=== PATIENT | female | born 1995 | race Caucasian/White ===

== ENCOUNTER 2020-12-23 04:55 | Emergency (ER) | payer OTHER ==
[~2020-12-23] VITALS: Ht 175.3 cm; Wt 61.5 kg
[2020-12-23 05:46] LABS: BASO % 0.2 % (0.0-1.0); EOS # 0.1 10^3/uL (0.0-0.5); EOS % 0.8 % (0.0-3.0); HEMATOCRIT 41.9 % (36.0-47.0); HEMOGLOBIN 14.4 g/dl (12.0-15.5); LYMPH # 0.3 10^3/uL (1.5-5.0); LYMPH % 2.9 % (24.0-44.0); MEAN CORPUSCULAR HEMOGLOBIN 32.1 pg (27.0-33.0); MEAN CORPUSCULAR HGB CONC 34.4 g/dl (32.0-36.5); MEAN CORPUSCULAR VOLUME 93.3 fl (80.0-96.0); MONO # 0.5 10^3/uL (0.0-0.8); MONO % 4.6 % (2.0-8.0); NEUTROPHILS # 10.6 10^3/uL (1.5-8.5); NEUTROPHILS % 91.2 % (36.0-66.0); PLATELET COUNT, AUTOMATED 287 10^3/uL (150-450); RED BLOOD COUNT 4.49 10^6/uL (4.00-5.40); WHITE BLOOD COUNT 11.7 10^3/uL (4.0-10.0)
[2020-12-23] MEDS ORDERED: ONDANSETRON 4MG/2ML VIAL IV ONE (06:15)
[2020-12-23] MEDS ORDERED: NS 1,000 ML IV ONE ×2 (06:15→08:20)
[2020-12-23] MEDS ORDERED: MORPHINE 4 MG/ML 1ML VIAL/SYRINGE (J2270) IV ONE (06:15)
[2020-12-23 06:17] LABS: ALBUMIN 4.5 GM/DL (3.2-5.2); ALT/SGPT 21 U/L (12-78); BILIRUBIN,DIRECT 0.2 MG/DL (0.0-0.2); BILIRUBIN,TOTAL 0.9 MG/DL (0.2-1.0); LIPASE 39 U/L (73-393); TOTAL PROTEIN 8.1 GM/DL (6.4-8.2)
[2020-12-23 06:29] LABS: HCG, SERUM QUALITATIVE NEGATIVE (NEGATIVE)
[2020-12-23] MEDS ORDERED: ISOVUE-370 76% 100ML VIAL As Ordered ONE (06:50)
--- NOTE | 2020-12-23 07:44 | REPVR ---
PROCEDURE INFORMATION: Exam: CT Abdomen And Pelvis With Contrast Exam date and time: 12/23/2020 6:44 AM Age: 25 years old Clinical indication: Abdominal pain; Localized; Right; Additional info: Right abd pain, suspect appy TECHNIQUE: Imaging protocol: Computed tomography of the abdomen and pelvis with contrast. Radiation optimization: All CT scans at this facility use at least one of these dose optimization techniques: automated exposure control; mA and/or kV adjustment per patient size (includes targeted exams where dose is matched to clinical indication); or iterative reconstruction. Contrast material: ISO; Contrast volume: 100 ml; Contrast route: INTRAVENOUS (IV); COMPARISON: No relevant prior studies available. FINDINGS: Liver: Normal. No mass. Gallbladder and bile ducts: Normal. No calcified stones. No ductal dilation. Pancreas: Normal. No ductal dilation. Spleen: Normal. No splenomegaly. Adrenal glands: Normal. No mass. Kidneys and ureters: Normal. No hydronephrosis. Stomach and bowel: There is suggestion of small bowel wall thickening versus under distension. Appendix: No evidence of appendicitis. Intraperitoneal space: Unremarkable. No free air. No significant fluid collection. Vasculature: Unremarkable. No abdominal aortic aneurysm. Lymph nodes: There are shotty small bowel mesenteric lymph nodes. Urinary bladder: Unremarkable as visualized. Reproductive: IUD seen in place. Bones/joints: The proximal end a right femoral fixating rods and screws seen. Soft tissues: Unremarkable. IMPRESSION: 1. Under distended small bowel loops limiting their evaluation for wall thickening coupled with shotty mesenteric lymph nodes. Underlying enteritis cannot be excluded. 2. IUD in place. Electronically signed by: Zia Schaeffer On 12/23/2020 07:44:32 AM
[2020-12-23] MEDS ORDERED: ONDA4TAB6 PO (09:10)
[2020-12-23 09:53] VITALS: BP 104/55
== END 2020-12-23 09:56 | disposition home or self-care (01) ==
LOC: M ED 04:55
DX: K52.9 Noninfective gastroenteritis and colitis, unspecified (principal); R11.2 Nausea with vomiting, unspecified; R19.7 Diarrhea, unspecified; F17.200 Nicotine dependence, unspecified, uncomplicated; Z97.5 Presence of (intrauterine) contraceptive device
CPT/HCPCS: 74177; 80047; 80076; 81001; 83690; 84703; 85025; 96361; 96374; 96375; 99284; J2270; J2405; Q9967

== ENCOUNTER 2021-01-28 15:11 | Inpatient (IN) | payer OTHER ==
[~2021-01-28] VITALS: Ht 165.1 cm; Wt 61.6 kg
[~2021-01-28 15:11] MED LIST: ONDA4TAB6 PO
[2021-01-28 18:07] LABS: HEMATOCRIT 39.1 % (36.0-47.0); HEMOGLOBIN 12.9 g/dl (12.0-15.5); MEAN CORPUSCULAR HEMOGLOBIN 31.7 pg (27.0-33.0); MEAN CORPUSCULAR VOLUME 96.1 fl (80.0-96.0); PLATELET COUNT, AUTOMATED 348 10^3/uL (150-450); RED BLOOD COUNT 4.07 10^6/uL (4.00-5.40); WHITE BLOOD COUNT 13.5 10^3/uL (4.0-10.0)
[2021-01-28 18:31] LABS: AMPHETAMINES LEVEL URINE NEGATIVE (NEGATIVE); BARBITURATES URINE NEGATIVE (NEGATIVE); BENZODIAZEPINES URINE NEGATIVE (NEGATIVE); CANNABINOIDS URINE NEGATIVE (NEGATIVE); COCAINE METABOLITE URINE NEGATIVE (NEGATIVE); METHADONE URINE NEGATIVE (NEGATIVE); OPIATES URINE NEGATIVE (NEGATIVE); PHENCYCLIDINE URINE NEGATIVE (NEGATIVE)
[2021-01-28 18:37] LABS: HCG, SERUM QUALITATIVE NEGATIVE (NEGATIVE)
[2021-01-28 18:45] LABS: RSV AMPLIFICATION NEGATIVE (NEGATIVE)
[2021-01-28 18:53] LABS: ACETAMINOPHEN LEVEL < 2.0 UG/ML (10.0-30.0); ALBUMIN 4.1 GM/DL (3.2-5.2); ALT/SGPT 24 U/L (12-78); BILIRUBIN,DIRECT 0.1 MG/DL (0.0-0.2); BILIRUBIN,TOTAL 0.3 MG/DL (0.2-1.0); BLOOD UREA NITROGEN 12 MG/DL (7-18); CALCIUM LEVEL 9.5 MG/DL (8.5-10.1); CARBON DIOXIDE LEVEL 28 MEQ/L (21-32); CHLORIDE LEVEL 107 MEQ/L (98-107); CREATININE FOR GFR 0.75 MG/DL (0.55-1.30); ETHYL ALCOHOL (ETHANOL) < 0.003 % (0.000-0.010); GLOMERULAR FILTRATION RATE > 60.0 (>60); GLUCOSE, FASTING 93 MG/DL (70-100); POTASSIUM SERUM 4.1 MEQ/L (3.5-5.1); SALICYLATE LEVEL 1.9 MG/DL (5.0-30.0); SODIUM LEVEL 140 MEQ/L (136-145); THYROID STIMULATING HORMONE 0.408 uIU/ML (0.358-3.740); TOTAL PROTEIN 7.8 GM/DL (6.4-8.2)
[2021-01-28] MEDS ORDERED: ACET-897 PO (19:14)
[2021-01-28] MEDS ORDERED: ACETAMINOPHEN TAB 650MG DOSE (2X325MG) PO PRN (19:45)
[2021-01-28] MEDS ORDERED: MOM 30ML SUSPENSION UDC PO PRN (19:45)
[2021-01-28] MEDS ORDERED: traZODone 50 MG TAB PO PRN (19:45)
[2021-01-28] MEDS ORDERED: MAALOX 30 ML SUSP *UDC PO PRN (19:45)
[2021-01-28 22:27] VITALS: BP 123/82
--- NOTE | 2021-01-29 06:57 | REP ---
INDICATION: trauma. COMPARISON: None. TECHNIQUE: Four views of the left wrist are provided. FINDINGS: Four views of the left wrist demonstrate normal bones, joints, and soft tissues. Overall mineralization pattern is normal. No fracture or subluxation is seen. IMPRESSION: Negative left wrist radiographs. No fracture seen. <Electronically signed by Cristian Schuler > 01/29/21 0635
--- NOTE | 2021-01-29 11:48 | MHHPEPDOC ---
General Date Of Admission: January 28, 2021 Legal Status: 9.39 Chief Complaint ". I was driving with suspended license and that validation software facilitator stopped me for some reason and I was afraid to go to senior living History of Present Illness HISTORY OF THE PRESENT ILLNESS: Patient is a 25 -year-old , female, who [has no previous psychiatric history but apparently had alcohol or use disorder and had 2 or 3 previous DWI arrest. Her last DWI arrest was in March 2018. and she was sentenced and [facility] She stated that she has been in for sobriety at since 03/06/2018 and has been fully employed and enjoying her life since. She was out driving yesterday with a suspended license and apparently was stopped by police for possible seatbelt by [employer] and she panicked because she knows she had a suspended license and in her panic. She grabbed the pocket knife from her purse and made a superficial cut on her neck. It was not serious and didn't require any stitches and she was medically cleared and admitted on 939 status. The routine labs were ordered within normal limits, and her tox screen was negative for any drugs or alcohol. She is strongly denying any suicidal intent. Denies any ongoing depression. Denies any new stressors and stated that it was her impulsive act in the moment of panic. She is pleasant, cooperative, well organized and in no acute distress and denies any serious depression or suicidal intent. Psychiatric Review of Systems Depression (2 or more weeks): denies Jackie (4 or more days of): denies Psychosis: denies PTSD: denies Anxiety: situational anxiety, stressor related anxiety Past Psychiatric History Previous Psychiatric Diagnosis: [Alcohol use disorder]. Previous Psychiatric Admissions: [None]. Suicide Attempts: [facility] prior history of suicidal attempt or plan. Psychiatric Follow-up: [, Not in any active treatment]. Psychiatric medications: [None]. Past Medical History Medical Problems Denies any major medical issues Head Injury: No Seizures: No Hospitalizations: No Surgeries: No Family Medical/Psychiatric HX Medical Problems Noncontributory Psychiatric Disorders: No Addiction: No Addiction History denies Social History Childhood: [Was born in [place], finished high school]. Abuse/Trauma: No history of abuse or trauma . Current Living Situation: [Lives with 2 roommates]. Education: [High school]. 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 Social Support: [Mother and the her friends f]. Legal: [3 DWIs, last one in March 2018. Served one and half years]. Marital: [, Never , single]. Mental Status Examination General Appearance: well groomed, appears stated age Build: average Demeanor: average Eye Contact: average Activity: average Behavior: cooperative Speech: clear, spontaneous, normal volume Mood: anxious Mood Denies any ongoing depression and no history of jackie and no history of psychosis. No family history of major psychiatric disorder Thought Process: logical/linear Thought Content (Delusions): none reported Thought Content (Other): none reported Thought Content (Aggressive): none reported Perception (Hallucinations): none reported Perception (Other): none reported Cognition (Impairment of): none reported Cognition(Intelligence Est.): average Oriented: Awake, Alert, Oriented times three Insight: fair Judgment: Fair Psychosis: Denies Diagnoses Adjustment disorder with mixed emotion Alcohol use disorder in full remission A-FIB/CHADSVASC A-FIB History Current/History of A-Fib/PAF?: No Current PO Anticoag Therapy: No Age/Risk Factor Scoring CHADSVASC: CHADSVASC Response (Comments) Value Gender Risk Factor Female 1 Hx of CHF No 0 Hx of HTN No 0 Hx of Stroke/TIA/or VTE No 0 Hx of Diabetes No 0 Hx of Vascular Disease No 0 Total 1 Treatment Treatment ordered: NONE Assessment The patient does not appear to be clinically depressed and does not appear to be acutely suicidal. Initial Treatment Plan 1. Patient was admitted on a [9.39] status. 2. Complete history was obtained. 3. With patients permission, family will be contacted and database will be expanded. 4. Patients medication regimen will be reviewed and changed accordingly. 5. Patient will be provided with protected environment. 6. Patient will be treated with individual, group, and milieu therapies. 7. Patient will receive supportive psych-education. 8. Discharge planning will commence immediately. 9. Outpatient follow-up treatment will be strongly recommended. 10. The initial treatment plan will focus initially on: * Depression. * Risk for suicide. ESTIMATED LENGTH OF STAY: [2]-[3] DAYS. TIME SPENT COUNSELING AND COORDINATING INITIAL CARE: 45 minutes. Tobacco Cessation Screen If Patient is a Smoker Nonsmoker N/A-No Antipsychotics Vital Signs Vital Signs Date Time Temp Pulse Resp B/P (MAP) Pulse Ox O2 Delivery O2 Flow Rate FiO2 01/28/21 22:27 99.5 63 20 123/82 (96) 96 Room Air Laboratory Data 24H Labs Laboratory Tests 2 01/28/21 16:55: Nucleated Red Blood Cells % (auto) 0.0, Anion Gap 5L, Glomerular Filtration Rate > 60.0, Calcium Level 9.5, Total Bilirubin 0.3, Direct Bilirubin 0.1, Aspartate Amino Transf (AST/SGOT) 14, Alanine Aminotransferase (ALT/SGPT) 24, Alkaline Phosphatase 44L, Total Protein 7.8, Albumin 4.1, Albumin/Globulin Ratio 1.1L, Thyroid Stimulating Hormone (TSH) 0.408, Human Chorionic Gonadotropin, Qual NEGATIVE, Salicylates Level 1.9L, Urine Opiates Screen NEGATIVE, Urine Methadone Screen NEGATIVE, Acetaminophen Level < 2.0L, Urine Barbiturates Screen NEGATIVE, Urine Phencyclidine Screen NEGATIVE, Urine Amphetamines Screen NEGATIVE, Urine Benzodiazepines Screen NEGATIVE, Urine Cocaine Metabolite Screen NEGATIVE, Urine Cannabinoids Screen NEGATIVE, Ethyl Alcohol Level < 0.003 01/28/21 17:26: Coronavirus (COVID-19)(PCR) NEGATIVE, Influenza Type A (RT-PCR) NEGATIVE, Influenza Type B (RT-PCR) NEGATIVE, Respiratory Syncytial Virus (PCR) NEGATIVE CBC/BMP Laboratory Tests 01/28/21 16:55 Medications Scheduled PRN Acetaminophen (Tylenol Extra Strength) 500 Mg Tablet, 1,000 MG PO TID PRN for PAIN, (Reported) Allergies Coded Allergies: No Known Allergies (Unverified , 12/23/20) CHANTELLE KWOK M.D. January 29, 2021 11:48
--- NOTE | 2021-01-29 15:37 | HPEPDOC ---
[facility] Medical History & Physical Date of Admission January 28, 2021 Date of Service: January 29, 2021 History and Physical CHIEF COMPLAINT: Unspecified depressive disorder HISTORY OF PRESENT ILLNESS: Ms. Hernandez is a 25 year old female who was seen in the inpatient mental health unit. Today, she feels well. Denies any fever, chest pain, dyspnea, or abdominal pain. She does have a cough which started 1 month ago. She brings up light greenish-yellow phlegm. She is a current smoker. Otherwise, she appears well and non-toxic. Her lungs sound clear. PAST MEDICAL HISTORY: 1. Tobacco use 2. History of alcohol use disorder (now in remission) 3. History of left pneumothorax PAST SURGICAL HISTORY: 1. Right femur surgery 2. Left wrist surgery SOCIAL HISTORY: Tobacco use: Current smoker, 2 years, 1 pack per week ETOH: Sober Illicit drug use: Denies FAMILY HISTORY: Father: Denies any known medical history Mother: Denies any known medical history ALLERGIES: Please see below. REVIEW OF SYSTEMS: CONSTITUTIONAL: Denies any fever or chills. ENT: Denies sore throat. RESPIRATORY: Denies shortness of breath. Reports cough with phlegm. CARDIOVASCULAR: Denies chest pain. GASTROINTESTINAL: Denies abdominal pain. Denies diarrhea. GENITOURINARY: Denies dysuria. CUTANEOUS: Denies rashes. MUSCULOSKELETAL: Denies muscle weakness. NEUROLOGICAL: Reports left hand paresthesia. History of injury to left hand PSYCHOLOGICAL: Denies anxiety. Denies depression. HOME MEDICATIONS: Please see below. PHYSICAL EXAMINATION: VITAL SIGNS: Temperature 97.8, pulse 63, respiratory rate 20, blood pressure 123/82, pulse oximetry 96% on room air. GENERAL: Comfortable, in no apparent distress. HEENT: Head normocephalic/atraumatic, EOMI, sclera clear. NECK: Supple. RESPIRATORY: Lungs clear to auscultation bilaterally, no rales, wheeze or rho nchi. CARDIOVASCULAR: Regular rate and rhythm. ABDOMEN: Soft, nontender, no guarding or rebound tenderness. Normal bowel sounds. MUSCLE SKELETAL: Muscle strength 5/5 in all extremities. NEUROLOGICAL: CN 312 grossly intact, no focal deficits noted. PSYCHOLOGICAL: Normal mood and affect LABORATORY DATA: See below. IMAGING: Radiologist interpretation Left wrist XR Negative left wrist radiographs. No fracture seen. MICROBIOLOGY: Please see below. ASSESSMENT and PLAN: 1. Unspecified depressive disorder -Being managed in the inpatient mental health unit 2. Cough with phlegm -Started about a month ago -Possibly a allergies vs post-viral cough vs bronchitis -Supportive care -Will order a CXR to evaluate -Patient lungs do sound clear and patient appears well at room air. She does not appear toxic. Unlikely to be pneumonia. 3. 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 Recommend using wrist splints. If does not improve, she should follow up with her PCP to discuss management Thank you for consulting us, we will sign off at this time. If there is any further questions or concerns, please do not hesitate to contact us. Vital Signs Vital Signs Date Time Temp Pulse Resp B/P (MAP) Pulse Ox O2 Delivery O2 Flow Rate FiO2 01/28/21 22:27 99.5 63 20 123/82 (96) 96 Room Air Laboratory Data Labs 24H Laboratory Tests 2 01/28/21 16:55: Nucleated Red Blood Cells % (auto) 0.0, Anion Gap 5L, Glomerular Filtration Rate > 60.0, Calcium Level 9.5, Total Bilirubin 0.3, Direct Bilirubin 0.1, Aspartate Amino Transf (AST/SGOT) 14, Alanine Aminotransferase (ALT/SGPT) 24, Alkaline Phosphatase 44L, Total Protein 7.8, Albumin 4.1, Albumin/Globulin Ratio 1.1L, Thyroid Stimulating Hormone (TSH) 0.408, Human Chorionic Gonadotropin, Qual NEGATIVE, Salicylates Level 1.9L, Urine Opiates Screen NEGATIVE, Urine Methadone Screen NEGATIVE, Acetaminophen Level < 2.0L, Urine Barbiturates Screen NEGATIVE, Urine Phencyclidine Screen NEGATIVE, Urine Amphetamines Screen NEGATIVE, Urine Benzodiazepines Screen NEGATIVE, Urine Cocaine Metabolite Screen NEGATIVE, Urine Cannabinoids Screen NEGATIVE, Ethyl Alcohol Level < 0.003 01/28/21 17:26: Coronavirus (COVID-19)(PCR) NEGATIVE, Influenza Type A (RT-PCR) NEGATIVE, Influenza Type B (RT-PCR) NEGATIVE, Respiratory Syncytial Virus (PCR) NEGATIVE CBC/BMP Laboratory Tests 01/28/21 16:55 Home Medications Scheduled PRN Acetaminophen (Tylenol Extra Strength) 500 Mg Tablet, 1,000 MG PO TID PRN for PAIN Allergies Coded Allergies: No Known Allergies (Unverified , 12/23/20) A-FIB/CHADSVASC A-FIB History Current/History of A-Fib/PAF?: No Age/Risk Factor Scoring CHADSVASC: CHADSVASC Response (Comments) Value Gender Risk Factor Female 1 Hx of CHF No 0 Hx of HTN No 0 Hx of Stroke/TIA/or VTE No 0 Hx of Diabetes No 0 Hx of Vascular Disease No 0 Total 1 SHIVANI LIU DO January 29, 2021 15:37
--- NOTE | 2021-01-29 16:12 | REP ---
INDICATION: Cough COMPARISON: None. TECHNIQUE: PA and lateral. FINDINGS: The mediastinum and cardiac silhouette are normal. The lung forbes are clear and without acute consolidation, effusion, or pneumothorax. The skeletal structures are intact and normal. IMPRESSION: No acute cardiopulmonary process. <Electronically signed by Giovanny Kamara > 01/29/21 3450
[2021-01-29 16:13] VITALS: BP 112/65
[2021-01-30 07:02] VITALS: BP 111/55
--- NOTE | 2021-01-30 09:19 | MHDSPDOC ---
[facility] Discharge Summary Discharge Summary DATE OF ADMISSION: January 28, 2021 at 19:44 DATE OF DISCHARGE: 01/30/2021 DISCHARGE DIAGNOSES: 1. . Adjustment disorder with mixed emotion 2. . Alcohol use disorder in remission REASON FOR ADMISSION: Patient was stopped by police while driving with a suspended license. She has a history of DWI arrest and last arrest March 2018 and has served one and half years and currently has her license suspended. When she was stopped by the police for seatbelt violation. She panicked and was scared of going back to [facility] and impulsively made a superficial cut on her neck with a pocket knife CONSULTANTS INVOLVED: None TREATMENT AND PROGRESS ON THE UNIT : Patient was seen for supportive therapy and lethality evaluation. Routine labs CBC, CMP is within normal limits and her urine tox screen was negative for drugs or alcohol. HOSPITAL COURSE: , She remained in good control and denies any serious depression or suicidal thoughts at all. She reports that she is in full sobriety since 03/06/2018 and denies any serious depression and is gainfully employed and happy with the progress. She does not show any clinical depressive symptoms and does not appear to be suicidal leona will be discharged with follow-up outpatient counseling. DISCHARGE ASSESSMENT: , Stable, not suicidal MENTAL STATUS EXAMINATION ON DISCHARGE: Patient is a 25-year old female, who is , pleasant, in no acute distress. Speech is good. Language skills are good. Thought processes including: , Organized, relevant. Thought content: . No suicidal thoughts. Abstract reasoning, and computation: Good. Description of associations: Organized . Description of abnormal or psychotic thoughts: None. Judgment: , Fair. Insight: Good. Orientation to , well oriented. Recent and remote memory: Good. Attention span and concentration: Good. Language: . Fund of knowledge: Average euthymic. Affect: , Appropriate. MEDICATIONS ON DISCHARGE: None - for . - for . - for . PLAN/FOLLOWUP ARRANGEMENTS: Follow up with outpatient counseling. The amount of time spent in the coordination of care for this patient was approximately 40 minutes. ETOH/Disorder Med Rx ETOH/DRUG DISORDER RX: N/A Vital Signs/I&Os Vital Signs Date Time Temp Pulse Resp B/P (MAP) Pulse Ox O2 Delivery O2 Flow Rate FiO2 01/30/21 07:02 97.8 61 16 111/55 (73) 97 Room Air Medications No Active Prescriptions or Reported Meds Allergies Coded Allergies: No Known Allergies (Unverified , 12/23/20) CHANTELLE KWOK M.D. January 30, 2021 09:19
== END 2021-01-30 09:39 | disposition home or self-care (01) | DRG 755 ==
LOC: M ED 15:11 → M ED INP 19:44 → M PSY 21:53
PROVIDERS: ADMIT Psychiatry & Neurology Psychiatry; ATTEND Psychiatry & Neurology Psychiatry
DX: F43.25 Adjustment disorder with mixed disturbance of emotions and conduct (principal); F10.11 Alcohol abuse, in remission; F17.210 Nicotine dependence, cigarettes, uncomplicated; R05 Cough; R20.2 Paresthesia of skin; Z20.822 Contact with and (suspected) exposure to COVID-19

== ENCOUNTER 2022-09-30 16:03 | Emergency (ER) | payer MEDICAID, OTHER ==
[~2022-09-30] VITALS: Ht 165.1 cm; Wt 66.6 kg
[~2022-09-30 16:03] MED LIST changes: +ACET-897 PO
[2022-09-30] MEDS ORDERED: MAGIC MOUTHWASH *ED ONLY* 5ML ORAL SYRINGE SS ONE (17:40)
[2022-09-30] MEDS ORDERED: LIDOCAINE 4% CREAM 5GM (LMX4) TOP ONE (17:40)
[2022-09-30] MEDS ORDERED: ISOVUE-370 76% 100ML VIAL As Ordered ONE (18:33)
[2022-09-30 18:36] LABS: BASO # 0.1 10^3/uL (0.0-0.2); BASO % 0.6 % (0.0-1.0); EOS # 0.4 10^3/uL (0.0-0.5); HEMATOCRIT 40.8 % (36.0-47.0); HEMOGLOBIN 13.9 g/dl (12.0-15.5); LYMPH # 1.8 10^3/uL (1.5-5.0); LYMPH % 19.5 % (24.0-44.0); MEAN CORPUSCULAR HGB CONC 34.1 g/dl (32.0-36.5); MEAN CORPUSCULAR VOLUME 93.8 fl (80.0-96.0); MONO # 0.7 10^3/uL (0.0-0.8); MONO % 7.7 % (2.0-8.0); NEUTROPHILS # 6.3 10^3/uL (1.5-8.5); NEUTROPHILS % 67.8 % (36.0-66.0); PLATELET COUNT, AUTOMATED 317 10^3/uL (150-450); RED BLOOD COUNT 4.35 10^6/uL (4.00-5.40); WHITE BLOOD COUNT 9.4 10^3/uL (4.0-10.0)
[2022-09-30 21:27] LABS: THYROXINE (T4) 8.7 UG/DL (4.5-10.9)
[2022-09-30 21:28] LABS: FREE THYROXINE INDEX 3.2 % (1.3-4.8); T UPTAKE 36.5 % (22.5-37.0); THYROID STIMULATING HORMONE 1.315 uIU/ML (0.55-4.78)
[2022-09-30] MEDS ORDERED: KETOROLAC 30 MG/ML 1ML VIAL IV ONE (21:55)
[2022-09-30 22:09] VITALS: BP 144/78
[2022-09-30] MEDS ORDERED: ANEC4CRE3 TOP (22:43)
[2022-09-30] MEDS ORDERED: LIDO2SOL17 PO (22:43)
== END 2022-09-30 22:59 | disposition home or self-care (01) ==
LOC: M ED 16:03
DX: S00.83XA Contusion of other part of head, initial encounter (principal); S10.91XA Abrasion of unspecified part of neck, initial encounter; F10.10 Alcohol abuse, uncomplicated; Y04.0XXA Assault by unarmed brawl or fight, initial encounter; Z79.899 Other long term (current) drug therapy

== ENCOUNTER 2022-10-17 06:01 | Inpatient (IN) | payer OTHER ==
[2022-10-17] VITALS (15 sets, daily range): BP systolic 98–143; BP diastolic 56–77
[~2022-10-17] VITALS: Ht 167.6 cm; Wt 62.0 kg
[~2022-10-17 06:01] MED LIST changes: +ANEC4CRE3 TOP; +LIDO15SO4 PO
[2022-10-17] MEDS ORDERED: ROCURONIUM BROMIDE 50MG/5ML VIAL ONE (06:02)
[2022-10-17] MEDS ORDERED: ETOMIDATE INJ 20MG/10ML VIAL ONE (06:02)
[2022-10-17] MEDS ORDERED: ETOMIDATE INJ 20MG/10ML VIAL IV ONE (06:05)
[2022-10-17] MEDS ORDERED: ROCURONIUM BROMIDE 50MG/5ML VIAL IV ONE (06:05)
[2022-10-17] MEDS ORDERED: PROPOFOL 1,000 MG/100 ML VIAL As Ordered ONE (06:08)
[2022-10-17] MEDS: propofoL 1,000 MG in IV 1 EA IV SCH ×8 (06:20→21:21)
[2022-10-17] MEDS ORDERED: NS 1,000 ML IV ONE ×2 (06:20→13:45)
[2022-10-17] MEDS: ROCURONIUM BROMIDE 50MG/5ML VIAL IV PRN ×2 (06:58→08:10)
[2022-10-17 07:14] LABS: BASO % 0.2 % (0.0-1.0); EOS % 0.2 % (0.0-3.0); HEMATOCRIT 35.6 % (36.0-47.0); HEMOGLOBIN 12.1 g/dl (12.0-15.5); LYMPH # 1.1 10^3/uL (1.5-5.0); MEAN CORPUSCULAR VOLUME 94.2 fl (80.0-96.0); MONO # 0.6 10^3/uL (0.0-0.8); MONO % 3.7 % (2.0-8.0); NEUTROPHILS # 13.9 10^3/uL (1.5-8.5); NEUTROPHILS % 88.3 % (36.0-66.0); PLATELET COUNT, AUTOMATED 277 10^3/uL (150-450); RED BLOOD COUNT 3.78 10^6/uL (4.00-5.40); WHITE BLOOD COUNT 15.7 10^3/uL (4.0-10.0)
[2022-10-17 07:34] LABS: AMPHETAMINES LEVEL URINE NEGATIVE (NEGATIVE); BARBITURATES URINE NEGATIVE (NEGATIVE); BENZODIAZEPINES URINE NEGATIVE (NEGATIVE)
[2022-10-17 07:35] LABS: COCAINE METABOLITE URINE NEGATIVE (NEGATIVE); METHADONE URINE NEGATIVE (NEGATIVE); OPIATES URINE NEGATIVE (NEGATIVE); PHENCYCLIDINE URINE NEGATIVE (NEGATIVE)
[2022-10-17 07:36] LABS: CANNABINOIDS URINE POSITIVE (NEGATIVE); ETHYL ALCOHOL (ETHANOL) 0.138 % (0.000-0.010)
[2022-10-17 07:38] LABS: ACETAMINOPHEN LEVEL < 2.0 UG/ML (10.0-20.0); SALICYLATE LEVEL < 3.0 MG/DL (<30)
[2022-10-17 07:42] LABS: ALBUMIN 4.2 G/DL (3.2-5.2); ALKALINE PHOSPHATASE 39 U/L (46-116); ALT/SGPT 19 U/L (7.0-40); AST/SGOT 24 U/L (<34); BILIRUBIN,DIRECT < 0.1 MG/DL (<0.4); BILIRUBIN,TOTAL 0.3 MG/DL (0.3-1.2); BLOOD UREA NITROGEN 13 MG/DL (9-23); CALCIUM LEVEL 8.3 MG/DL (8.5-10.1); CARBON DIOXIDE LEVEL 24 MMOL/L (20-31); CHLORIDE LEVEL 103 MMOL/L (98-107); CREATININE FOR GFR 0.75 MG/DL (0.55-1.30); GLOMERULAR FILTRATION RATE > 60.0 (>60); GLUCOSE, FASTING 108 MG/DL (60-100); SODIUM LEVEL 138 MMOL/L (136-145); THYROID STIMULATING HORMONE 0.665 uIU/ML (0.55-4.78); TOTAL PROTEIN 7.1 G/DL (5.7-8.2)
[2022-10-17 07:43] LABS: RSV AMPLIFICATION NEGATIVE (NEGATIVE)
[2022-10-17] MEDS ORDERED: ALBUTEROL SULFATE 2.5MG/0.5ML INH NEB SOLN NEB PRN (08:45)
[2022-10-17] MEDS ORDERED: HOME MED LIST COMPLETE! XX SCH (09:00)
[2022-10-17] MEDS ORDERED: MULTIVITAMIN -ADULT INJECTION 10 ML, THIAMINE INJection 100 MG, FOLIC ACID 1 MG in NS 1... IV ONE (10:00)
[2022-10-17] MEDS: NS 1,000 ML IV SCH ×3 (10:12→21:00)
[2022-10-17] MEDS: CHLORHEXIDINE GLUCONATE 0.12 % 15ML UDC (PERIDEX ORAL RINSE) MT SCH ×2 (10:50→20:59)
[2022-10-17] MEDS: PANTOPRAZOLE 40MG VIAL IV SCH (10:50)
[2022-10-17 12:41] LABS: ABG BASE EXCESS -3.2 (-2.0-2.0); ABG HCO3 21.3 MEQ/L (22.0-26.0); ABG O2 SATURATION 97.3 % (95.0-99.0); ABG PARTIAL PRESSURE CO2 36.3 mmHg (35.0-45.0); ABG PARTIAL PRESSURE O2 101.6 mmHg (75.0-100.0); ABG STANDARD HCO3 21.8 MEQ/L (22.0-26.0); ABG TOTAL CO2 22.4 MEQ/L (22.0-29.0); ABG pH (ARTERIAL) 7.386 UNITS (7.350-7.450)
[2022-10-17] MEDS: dexmedeTOMidine 200 MCG in IV 1 EA IV SCH ×3 (13:19→20:59)
[2022-10-17] MEDS: MIDAZOLAM INJ 2MG/2ML VIAL IV PRN (14:21)
[2022-10-17] MEDS: HEPARIN SOD (PORCINE) 5000UNITS/ML 1ML VIAL/SYRINGE SC SCH (21:20)
[2022-10-18] VITALS (18 sets, daily range): BP systolic 118–154; BP diastolic 58–95
[2022-10-18] MEDS: MIDAZOLAM INJ 2MG/2ML VIAL IV PRN ×2 (02:29→05:20)
[2022-10-18] MEDS: propofoL 1,000 MG in IV 1 EA IV SCH ×2 (02:34→05:09)
[2022-10-18] MEDS ORDERED: LORazepam 1 MG TAB PO PRN (02:40)
[2022-10-18] MEDS: NS 1,000 ML IV SCH (05:06)
[2022-10-18] MEDS: HEPARIN SOD (PORCINE) 5000UNITS/ML 1ML VIAL/SYRINGE SC SCH ×3 (05:08→21:56)
[2022-10-18 05:26] LABS: HEMATOCRIT 36.7 % (36.0-47.0); HEMOGLOBIN 12.1 g/dl (12.0-15.5); MEAN CORPUSCULAR HEMOGLOBIN 31.8 pg (27.0-33.0); MEAN CORPUSCULAR VOLUME 96.6 fl (80.0-96.0); PLATELET COUNT, AUTOMATED 249 10^3/uL (150-450); WHITE BLOOD COUNT 8.1 10^3/uL (4.0-10.0)
[2022-10-18 05:27] LABS: ABG BASE EXCESS -1.5 (-2.0-2.0); ABG HCO3 22.5 MEQ/L (22.0-26.0); ABG O2 SATURATION 96.8 % (95.0-99.0); ABG PARTIAL PRESSURE CO2 35.3 mmHg (35.0-45.0); ABG STANDARD HCO3 23.2 MEQ/L (22.0-26.0); ABG TOTAL CO2 23.6 MEQ/L (22.0-29.0); ABG pH (ARTERIAL) 7.422 UNITS (7.350-7.450)
[2022-10-18 05:59] LABS: ALBUMIN 3.6 G/DL (3.2-5.2); ALKALINE PHOSPHATASE 41 U/L (46-116); ALT/SGPT 18 U/L (7.0-40); AST/SGOT 9 U/L (<34); BILIRUBIN,TOTAL 0.6 MG/DL (0.3-1.2); BLOOD UREA NITROGEN 12 MG/DL (9-23); CALCIUM LEVEL 7.8 MG/DL (8.5-10.1); CARBON DIOXIDE LEVEL 20 MMOL/L (20-31); CHLORIDE LEVEL 116 MMOL/L (98-107); CREATININE FOR GFR 0.79 MG/DL (0.55-1.30); GLOMERULAR FILTRATION RATE > 60.0 (>60); GLUCOSE, FASTING 69 MG/DL (60-100); MAGNESIUM LEVEL 1.9 MG/DL (1.8-2.4); POTASSIUM SERUM 3.9 MMOL/L (3.5-5.1); SODIUM LEVEL 143 MMOL/L (136-145); TOTAL PROTEIN 6.1 G/DL (5.7-8.2)
[2022-10-18] MEDS ORDERED: LORazepam 2 MG TAB PO PRN (09:15)
[2022-10-18] MEDS: MULTIVITAMINS/MINERALS THERAP 1 TAB PO SCH (10:23)
[2022-10-18] MEDS: THIAMINE 100 MG TAB PO SCH ×2 (10:23→21:57)
[2022-10-18] MEDS: FOLIC ACID 1MG TAB PO SCH (10:24)
[2022-10-18] MEDS: PANTOPRAZOLE 40MG VIAL IV SCH (10:27)
[2022-10-18] MEDS: ACETAMINOPHEN 500 MG TAB PO PRN ×2 (10:27→21:57)
[2022-10-18] MEDS ORDERED: ONDANSETRON 4MG 2ML VIAL IV ONE (11:05)
[2022-10-18] MEDS ORDERED: KETOROLAC 30 MG/ML 1ML VIAL IV ONE (12:55)
[2022-10-19 05:22] VITALS: BP 101/48
[2022-10-19] MEDS: HEPARIN SOD (PORCINE) 5000UNITS/ML 1ML VIAL/SYRINGE SC SCH (06:20)
[2022-10-19 07:44] LABS: BASO % 0.3 % (0.0-1.0); EOS # 0.3 10^3/uL (0.0-0.5); EOS % 3.9 % (0.0-3.0); HEMATOCRIT 30.6 % (36.0-47.0); HEMOGLOBIN 10.2 g/dl (12.0-15.5); LYMPH # 2.2 10^3/uL (1.5-5.0); LYMPH % 33.8 % (24.0-44.0); MEAN CORPUSCULAR HEMOGLOBIN 32.4 pg (27.0-33.0); MEAN CORPUSCULAR HGB CONC 33.3 g/dl (32.0-36.5); MEAN CORPUSCULAR VOLUME 97.1 fl (80.0-96.0); MONO # 0.7 10^3/uL (0.0-0.8); MONO % 10.8 % (2.0-8.0); NEUTROPHILS # 3.3 10^3/uL (1.5-8.5); NEUTROPHILS % 50.9 % (36.0-66.0); PLATELET COUNT, AUTOMATED 226 10^3/uL (150-450); RED BLOOD COUNT 3.15 10^6/uL (4.00-5.40); WHITE BLOOD COUNT 6.5 10^3/uL (4.0-10.0)
[2022-10-19 08:38] LABS: ALBUMIN 3.1 G/DL (3.2-5.2); ALKALINE PHOSPHATASE 39 U/L (46-116); ALT/SGPT 17 U/L (7.0-40); AST/SGOT 21 U/L (<34); BILIRUBIN,TOTAL 0.6 MG/DL (0.3-1.2); BLOOD UREA NITROGEN 10 MG/DL (9-23); CALCIUM LEVEL 8.2 MG/DL (8.5-10.1); CARBON DIOXIDE LEVEL 25 MMOL/L (20-31); CHLORIDE LEVEL 110 MMOL/L (98-107); CREATININE FOR GFR 0.88 MG/DL (0.55-1.30); GLOMERULAR FILTRATION RATE > 60.0 (>60); GLUCOSE, FASTING 83 MG/DL (60-100); POTASSIUM SERUM 3.5 MMOL/L (3.5-5.1); SODIUM LEVEL 142 MMOL/L (136-145); TOTAL PROTEIN 5.5 G/DL (5.7-8.2)
[2022-10-19] MEDS ORDERED: PANTOPRAZOLE 40MG TAB (PROTONIX) PO SCH (09:00)
[2022-10-19] MEDS: MULTIVITAMINS/MINERALS THERAP 1 TAB PO SCH (09:18)
[2022-10-19] MEDS: THIAMINE 100 MG TAB PO SCH (09:19)
[2022-10-19] MEDS: FOLIC ACID 1MG TAB PO SCH (09:19)
[2022-10-19] MEDS ORDERED: FOLI1TAB11 PO (09:40)
[2022-10-19] MEDS ORDERED: VITMTA PO (09:40)
[2022-10-19] MEDS ORDERED: THIA100TA PO (09:40)
== END 2022-10-19 12:55 | disposition home or self-care (01) | DRG 133 ==
LOC: EDBD 06:01 → M ED 06:01 → M ED INP 08:42 → ENRESERV 08:58 → M ICU 09:47 → M MS5PR 10-18 12:34
PROVIDERS: ADMIT Internal Medicine; ATTEND Internal Medicine
PROC: 0BH17EZ Insertion of Endotracheal Airway into Trachea, Via Natural or Artificial Opening (ICD-10-PCS; principal; 2022-10-17)
PROC: 5A1935Z Respiratory Ventilation, Less than 24 Consecutive Hours (ICD-10-PCS; 2022-10-17)
DX: J96.01 Acute respiratory failure with hypoxia (principal); G93.41 Metabolic encephalopathy; E87.20 Acidosis, unspecified; F10.129 Alcohol abuse with intoxication, unspecified; F12.99 Cannabis use, unspecified with unspecified cannabis-induced disorder; Z20.822 Contact with and (suspected) exposure to COVID-19

== ENCOUNTER → 2022-11-26 | Outpatient (CLI) | payer OTHER ==
[~2022-11-26] MED LIST changes: +FOLI1TAB11 PO; +THIA100TA PO; +VITMTA PO
== END ==
LOC: M OUTALCOH 07:36
PROVIDERS: ATTEND Psychiatry & Neurology Psychiatry
DX: Z13.39 Encounter for screening examination for other mental health and behavioral disorders (principal)

== ENCOUNTER 2023-01-12 21:37 | Emergency (ER) | payer OTHER ==
[~2023-01-12] VITALS: Ht 165.1 cm; Wt 61.7 kg
[~2023-01-12 21:37] MED LIST changes: +LIDO15SO PO; -LIDO15SO4 PO
[2023-01-12 21:38] VITALS: BP 122/80
== END 2023-01-12 23:40 | disposition left against medical advice (07) ==
LOC: M ED 21:37
DX: Z53.21 Procedure and treatment not carried out due to patient leaving prior to being seen by health care provider (principal)

== ENCOUNTER 2024-06-16 17:17 | Emergency (ER) | payer OTHER ==
[~2024-06-16] VITALS: Ht 165.1 cm; Wt 58.9 kg
[~2024-06-16 17:17] MED LIST changes: -LIDO15SO PO; +LIDO15SO8 PO; +ONDA-282 PO; -ONDA4TAB6 PO
[2024-06-16 17:27] VITALS: TEMP 98
[2024-06-16 18:14] LABS: BASO # 0.1 10^3/uL (0.0-0.2); BASO % 0.4 % (0.0-1.0); EOS # 0.1 10^3/uL (0.0-0.5); EOS % 0.9 % (0.0-3.0); HEMATOCRIT 37.1 % (36.0-47.0); HEMOGLOBIN 12.5 g/dl (12.0-15.5); LYMPH # 1.3 10^3/uL (1.5-5.0); LYMPH % 9.9 % (24.0-44.0); MEAN CORPUSCULAR HEMOGLOBIN 31.4 pg (27.0-33.0); MEAN CORPUSCULAR HGB CONC 33.7 g/dl (32.0-36.5); MEAN CORPUSCULAR VOLUME 93.2 fl (80.0-96.0); MONO # 0.7 10^3/uL (0.0-0.8); MONO % 5.5 % (2.0-8.0); NEUTROPHILS # 11.1 10^3/uL (1.5-8.5); PLATELET COUNT, AUTOMATED 281 10^3/uL (150-450); RED BLOOD COUNT 3.98 10^6/uL (4.00-5.40); WHITE BLOOD COUNT 13.3 10^3/uL (4.0-10.0)
[2024-06-16 18:37] LABS: ETHYL ALCOHOL (ETHANOL) < 0.003 % (0.000-0.010)
[2024-06-16 18:38] LABS: BLOOD UREA NITROGEN 21 MG/DL (9-23); CALCIUM LEVEL 9.4 MG/DL (8.5-10.1); CARBON DIOXIDE LEVEL 25 MMOL/L (20-31); CHLORIDE LEVEL 107 MMOL/L (98-107); CREATININE FOR GFR 0.91 MG/DL (0.55-1.30); GLOMERULAR FILTRATION RATE > 60.0 (>60); GLUCOSE, FASTING 99 MG/DL (60-100); POTASSIUM SERUM 3.5 MMOL/L (3.5-5.1); SALICYLATE LEVEL < 3.0 MG/DL (<30); SODIUM LEVEL 140 MMOL/L (136-145)
[2024-06-16 18:41] LABS: THYROID STIMULATING HORMONE 0.456 uIU/ML (0.55-4.78)
[2024-06-16 18:49] LABS: HCG, SERUM QUALITATIVE NEGATIVE (NEGATIVE)
[2024-06-16 20:06] LABS: AMPHETAMINES LEVEL URINE NEGATIVE (NEGATIVE); BARBITURATES URINE NEGATIVE (NEGATIVE); BENZODIAZEPINES URINE NEGATIVE (NEGATIVE); COCAINE METABOLITE URINE NEGATIVE (NEGATIVE); METHADONE URINE NEGATIVE (NEGATIVE); OPIATES URINE NEGATIVE (NEGATIVE); PHENCYCLIDINE URINE NEGATIVE (NEGATIVE)
[2024-06-16 20:07] LABS: CANNABINOIDS URINE POSITIVE (NEGATIVE)
[2024-06-16 21:30] VITALS: BP 117/71; O2SAT 98
== END 2024-06-16 21:47 | disposition home or self-care (01) ==
LOC: EDBD 17:17 → M ED 17:17
DX: R56.9 Unspecified convulsions (principal); F32.A Depression, unspecified; F19.11 Other psychoactive substance abuse, in remission; F17.200 Nicotine dependence, unspecified, uncomplicated

== ENCOUNTER 2025-07-03 23:29 | Emergency (ER) | payer OTHER ==
[~2025-07-03] VITALS: Ht 167.6 cm; Wt 62.4 kg
[2025-07-03] MEDS: NS (Normal Saline) 0.9% 1,000 ML IV ONE (23:50)
[2025-07-04 00:05] LABS: VENOUS BASE EXCESS -4.0 (-2.0-2.0); VENOUS HCO3 22.5 MMOL/L (23.0-27.0); VENOUS O2 SATURATION 80.4 % (60.0-80.0); VENOUS PARTIAL PRESSURE CO2 46.6 mmHg (38.0-50.0); VENOUS PARTIAL PRESSURE O2 48.7 mmHg (30.0-50.0); VENOUS PH 7.301 UNITS (7.330-7.430); VENOUS STANDARD HCO3 20.8 MMOL/L; VENOUS TOTAL CO2 23.9 MMOL/L (24.0-28.0)
[2025-07-04 00:20] LABS: BASO # 0.0 10^3/uL (0.0-0.2); BASO % 0.5 % (0.0-1.0); EOS # 0.1 10^3/uL (0.0-0.5); EOS % 1.8 % (0.0-3.0); LYMPH # 2.0 10^3/uL (1.5-5.0); LYMPH % 27.0 % (24.0-44.0); MONO # 0.6 10^3/uL (0.0-0.8); MONO % 8.2 % (2.0-8.0); NEUTROPHILS # 4.5 10^3/uL (1.5-8.5); NEUTROPHILS % 62.1 % (36.0-66.0); PLATELET COUNT, AUTOMATED 236 10^3/uL (150-450)
[2025-07-04 00:33] LABS: ETHYL ALCOHOL (ETHANOL) 0.116 % (0.000-0.010)
[2025-07-04 00:35] LABS: ALT/SGPT 25 U/L (7.0-40); AST/SGOT 27 U/L (<34); CALCIUM LEVEL 8.3 MG/DL (8.5-10.1); CARBON DIOXIDE LEVEL 24 MMOL/L (20-31); CHLORIDE LEVEL 107 MMOL/L (98-107); CREATININE FOR GFR 0.90 MG/DL (0.55-1.30); GLOMERULAR FILTRATION RATE 88.2 (>60); POTASSIUM SERUM 3.9 MMOL/L (3.5-5.1); SALICYLATE LEVEL < 3.0 MG/DL (<30); SODIUM LEVEL 141 MMOL/L (136-145)
[2025-07-04 00:48] LABS: KETONE, URINE AUTO RFX NEGATIVE (NEGATIVE); LEUKOCYTE ESTERASE UR AUTO RFX NEGATIVE (NEGATIVE); MUCUS, URINE RFX SMALL (NEGATIVE); NITRITE, URINE AUTO RFX NEGATIVE (NEGATIVE); RBC, URINE AUTO RFX 1 /HPF (0-3); SQUAM EPITHELIAL CELL UR AURFX 4 /HPF (0-6); WBC, URINE AUTO RFX 1 /HPF (0-3)
[2025-07-04 01:10] LABS: AMPHETAMINES LEVEL URINE NEGATIVE (NEGATIVE); BARBITURATES URINE NEGATIVE (NEGATIVE); BENZODIAZEPINES URINE NEGATIVE (NEGATIVE); COCAINE METABOLITE URINE NEGATIVE (NEGATIVE); METHADONE URINE NEGATIVE (NEGATIVE); OPIATES URINE NEGATIVE (NEGATIVE); PHENCYCLIDINE URINE NEGATIVE (NEGATIVE)
[2025-07-04 01:12] LABS: OSMOLALITY SERUM 324 MOSM/KG (275-295)
[2025-07-04 01:19] LABS: CANNABINOIDS URINE POSITIVE (NEGATIVE)
[2025-07-04 04:00] VITALS: TEMP 97.6
[2025-07-04 05:00] VITALS: BP 109/59; O2SAT 97
== END 2025-07-04 05:30 | disposition home or self-care (01) ==
LOC: M ED 23:29
DX: F10.129 Alcohol abuse with intoxication, unspecified (principal); F12.10 Cannabis abuse, uncomplicated